=== PATIENT | female | born 2000 | race Caucasian/White ===

== ENCOUNTER 2023-10-07 17:40 | Outpatient (CLI) | payer OTHER, MEDICAID, SELFPAY ==
[2023-10-07 18:06] VITALS: BP 128/80; PULSE 112
[2023-10-07 18:09] VITALS: RESP 16; TEMP 37.6
[2023-10-07 18:31] VITALS: BMI 30.2
[2023-10-07 18:35] LABS: Color, Urine Yellow (Yellow); Glucose, Dipstick Normal (Normal); Ketone-Dipstick 5 mg/dl (Negative); Leukocyte Esterase-Dipstick 500 /ul (Negative); Nitrite-Dipstick Negative (Negative); Occult Blood-Urine Negative /ul (Negative); Protein-Dipstick Negative (Negative); Urine Bilirubin Dipstick Negative (Negative); Urine Clarity Sl. Cloudy (Clear); Urine Urobilinogen Normal (Normal); Urine pH 6.5 (5.0 - 8.0)
[2023-10-07 19:00] LABS: ROM Internal Control Test YES-OK TO RESULT pt. (Internal QC); ROM Patient Test Negative (Negative); Record Kit Lot#, ROM+ K1866
--- NOTE | 2023-10-07 21:57 | OB.TRI.NOTE ---
HPI - General General Date of Admission: 10/07/23 Date of Service: 10/07/23 Chief Complaint: contractions HPI Narrative CLIFF RINCON, is a 22 F who presents with contractions. Was 3 cm at her last office visit. 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 No vb, lof. Good FM. PFSH PFSH Allergy/AdvReac Type Severity Reaction Status Date / Time No Known Allergies Allergy Verified 10/07/23 18:29 NST FHR Rate Baby A Baseline: 135 Variability:: Moderate Accelerations:: 15 x 15 Decelerations:: None NST Reactive:: Yes FHR Category:: Category I Uterine Activity:: Occasional irregular Assessment & Plan (1) 37 weeks gestation of : (2) Uterine contractions: PLAN: Contractions irregular on toco. Patient comfortable appearing per nursing staff and unchanged from last office visit. Not in labor at this time. Discharge home.
== END 2023-10-07 19:15 | disposition home or self-care (01) ==
LOC: WPOUT 18:00 → WP 18:01
PROVIDERS: Referring Provider Obstetrics & Gynecology; Visit Provider Obstetrics & Gynecology
DX: O47.1 False labor at or after 37 completed weeks of gestation (principal); Z3A.37 37 weeks gestation of pregnancy
CPT/HCPCS: 59025; 59050; 81002; 84112; 87086; 87088; 99221; G0378

== ENCOUNTER → 2024-11-20 | Outpatient (CLI) | payer OTHER, MEDICAID, SELFPAY ==
[2024-11-20 11:31] LABS: Glucose GTT-Gestation. Fasting 79 mg/dL (<105)
[2024-11-20 12:53] LABS: Glucose GTT-Gestational 1 Hr 149 mg/dL (<190)
[2024-11-20 13:29] LABS: Glucose GTT-Gestational 2 Hr 134 mg/dL (<165)
[2024-11-20 16:02] LABS: Glucose GTT-Gestational 3 Hr 100 L (<145)
== END | disposition home or self-care (01) ==
DX: O09.893 Supervision of other high risk pregnancies, third trimester (principal); Z3A.00 Weeks of gestation of pregnancy not specified
CPT/HCPCS: 36415; 82951; 82952